=== PATIENT | male | born 1975 | race Caucasian/White ===

== ENCOUNTER 2021-08-25 08:35 | Emergency (ER) | payer OTHER ==
[~2021-08-25] VITALS: Ht 188 cm; Wt 122.5 kg
[2021-08-25 08:55] VITALS: BP 158/86
[2021-08-25] MEDS ORDERED: TESSALON PERLE100 MG PO (09:30)
--- NOTE | 2021-08-26 10:50 | EKG ---
[place] [id number] [facility] 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
== END 2021-08-25 09:30 | disposition home or self-care (01) ==
LOC: ER 08:35
PROVIDERS: Emergency Medicine
DX: J06.9 Acute upper respiratory infection, unspecified (principal); Z20.822 Contact with and (suspected) exposure to COVID-19; Z86.16 Personal history of COVID-19